=== PATIENT | male | born 1965 | race Two or more races ===

== ENCOUNTER 2021-03-29 19:40 | Emergency (ER) | payer BC ==
[2021-03-29] MEDS ORDERED: SODIUM CHLORIDE 0.9% 1,000 ML IV STA (20:22)
[2021-03-29] MEDS ORDERED: IBUPROFEN 600 MG TAB PO STA (20:22)
[2021-03-29] MEDS ORDERED: ONDANSETRON 4 MG/2 ML VIAL IVP STA (20:22)
[2021-03-29] MEDS ORDERED: ACETAMINOPHEN TAB 500 MG TAB PO STA (20:22)
[2021-03-29] MEDS ORDERED: CASIRIVIMAB/IMDEVIMAB (EUA) 1,200 MG in SODIUM CHLORIDE 0.9% 100 ML IVPB ONE (21:15)
[2021-03-29] MEDS ORDERED: SODIUM CHLORIDE 0.9% 50 ML IVPB ONE (21:15)
--- NOTE | 2021-03-29 21:29 | ED ---
General Adult HPI - General Chief complaint: Fever Stated complaint: Covid+,Wants antibody Time Seen by Provider: 03/29/21 20:02 Source: patient, RN notes reviewed Mode of arrival: ambulatory Limitations: no limitations - History of Present Illness Initial comments: Patient is a 56-year-old male with history of diabetes, hypertension, presenting to the emergency department with worsening cough and congestion, is requesting monoclonal antibodies. Patient tested positive for Covid 4 days ago, symptoms also started 4 days ago. His tested positive a few days before that. He has been having cough, congestion, fevers and chills. His appetite has been lower base able tolerate fluids. He denies any chest pains, no abdominal pain, is had some intermittent nausea but no diarrhea or vomiting. Denies history of asthma or COPD, is nonsmoker. Patient has no further complaints. He states his last dose of Tylenol was about 3-4 hours prior to arrival. Patient does arrive febrile 102.4, pulse is 104, 97% on room air. - Related Data Home Medications Medication Instructions Recorded Confirmed Azithromycin [Zithromax Z-pack (6 See Taper PO DIRECTED 03/29/21 03/29/21 tabs)] Benzonatate [Tessalon Perles] 100 mg PO TID PRN 03/29/21 03/29/21 Glimepiride [Amaryl] 4 mg PO AC-BID 03/29/21 03/29/21 lisinopriL [Zestril] 5 mg PO DAILY 03/29/21 03/29/21 metFORMIN HCL [Glucophage] 1,000 mg PO AC-BID 03/29/21 03/29/21 Previous Rx's Medication Instructions Recorded Albuterol Inhaler [Ventolin Hfa 1 puff INHALATION RT-QID PRN #8 gm 03/29/21 Inhaler] Dexamethasone [Decadron] 6 mg PO DAILY 7 Days #7 tablet 03/29/21 Allergies Allergy/AdvReac Type Severity Reaction Status Date / Time No Known Allergies Allergy Verified 03/29/21 20:33 Review of Systems ROS Statement: Those systems with pertinent positive or pertinent negative responses have been documented in the HPI. ROS Other: All systems not noted in ROS Statement are negative. Past Medical History Past Medical History: Diabetes Mellitus, Hypertension History of Any Multi-Drug Resistant Organisms: None Reported Past Surgical History: No Surgical Hx Reported Past Psychological History: No Psychological Hx Reported Smoking Status: Never smoker Past Alcohol Use History: None Reported Past Drug Use History: None Reported General Exam - General Exam Comments Initial Comments: GENERAL: Patient is well-developed and well-nourished. Patient is nontoxic and in no acute distress. HEAD: Atraumatic, normocephalic. EYES: Pupils equal round and reactive to light, extraocular movements intact, sclera anicteric, conjunctiva are normal. Eyelids were unremarkable. ENT: TMs normal, nares patent, oropharynx clear without exudates. Moist mucous membranes. NECK: Normal range of motion, supple without lymphadenopathy or JVD. LUNGS: Unlabored respirations. Breath sounds clear to auscultation bilaterally and equal. No wheezes rales or rhonchi. HEART: Regular rate and rhythm without murmurs, rubs or gallops. ABDOMEN: Soft, nontender, normoactive bowel sounds. No guarding, no rebound. No masses appreciated. MUSCULOSKELETAL: Normal extremities with adequate strength and normal range of motion, no pitting or edema. No clubbing or cyanosis. NEUROLOGICAL: Patient is alert and oriented x 3. Normal speech, normal gait. PSYCH: Normal mood, normal affect. SKIN: Warm, Dry, normal turgor, no rashes or lesions noted. Course Vital Signs 03/29/21 03/29/21 19:53 22:00 Temperature 102.4 F H 98.5 F Pulse Rate 104 H Respiratory 18 Rate Blood Pressure 143/83 O2 Sat by Pulse 97 Oximetry Medical Decision Making - Medical Decision Making Patient is a 56-year-old male here, requesting monoclonal antibodies. He tested positive for days ago, symptoms began also 4 days ago. He did arrive febrile, slightly tachycardia. Exam is unremarkable. Patient was given monoclonal antibodies, no adverse side effects. Also given fluids, Tylenol Motrin for his fever. He states a permanent symptoms. Patient will be discharged home with steroids, inhaler. I recommended continue with Tylenol Motrin for fever control. He is agreeable to this plan of care and he is stable for discharge. Return parameters were discussed with him and he verbalized understanding. Case discussed with Dr. Benson. Disposition Clinical Impression: COVID-19 Disposition: HOME SELF-CARE Condition: Stable Instructions (If sedation given, give patient instructions): Coronavirus Disease 2019 (COVID-19) Additional Instructions: Please return to the Emergency Department if symptoms worsen or any other concerns. Take steroids and use inhaler as prescribed. Continue with Tylenol and Motrin for fever control, increase your fluid intake. Follow-up with your primary care physician. Prescriptions: Dexamethasone [Decadron] 6 mg PO DAILY 7 Days #7 tablet Albuterol Inhaler [Ventolin Hfa Inhaler] 1 puff INHALATION RT-QID PRN #8 gm PRN Reason: Shortness Of Breath Is patient prescribed a controlled substance at d/c from ED?: No Referrals: Ray Cheatham MD [Primary Care Provider] - 1-2 days Time of Disposition: 22:53
[2021-03-29 22:46] VITALS: TEMP 98.5
[2021-03-29 23:14] VITALS: BP 112/75; PULSE 87; RESP 20
== END 2021-03-30 00:09 | disposition home or self-care (01) ==
LOC: EC 19:40
DX: U07.1 COVID-19 (principal); E11.9 Type 2 diabetes mellitus without complications; I10 Essential (primary) hypertension; Z79.84 Long term (current) use of oral hypoglycemic drugs; Z79.52 Long term (current) use of systemic steroids; Z79.899 Other long term (current) drug therapy
CPT/HCPCS: 99283 ×2; 96375 ×2; 96361 ×2; M0243; J2405; Q0243; 96374